=== PATIENT | male | born 2000 | race African-American/Black ===

== ENCOUNTER 2020-06-05 21:40 | Emergency (ER) | payer OTHER ==
[~2020-06-05] VITALS: Ht 177.8 cm; Wt 86.2 kg
[2020-06-05 22:23] LABS: ABSOLUTE NEUTROPHILS 4.2 thou/uL (1.4-8.2); BASOPHILS 1.1 % (0.0-2.0); EOSINOPHILS 3.3 % (0.0-3.0); HEMATOCRIT 48.7 % (42.0-52.0); LYMPHOCYTES 30.5 % (24.0-44.0); MCH 29.1 pg (26.0-34.0); MCHC 32.9 g/dL (28.0-37.0); MCV 88.2 fL (80.0-100.0); MONOCYTES 8.1 % (1.0-8.0); PLATELET COUNT 249 thou/uL (150-400); RBC 5.52 mil/uL (4.50-6.00); RDW 14.1 % (10.5-14.5); WBC 7.4 thou/uL (4.0-11.0)
[2020-06-05 22:24] LABS: URINE BILIRUBIN NEGATIVE (Negative); URINE BLOOD NEGATIVE (Negative); URINE CLARITY CLEAR; URINE COLOR YELLOW; URINE GLUCOSE-RANDOM* NEGATIVE (Negative); URINE KETONES NEGATIVE (Negative); URINE LEUKOCYTES-REFLEX NEGATIVE (Negative); URINE NITRITE-REFLEX NEGATIVE (Negative); URINE PROTEIN (DIPSTICK) 2+ (Negative); URINE SPECIFIC GRAVITY >= 1.030 (1.005-1.035); URINE UROBILINOGEN 0.2 E.U./dl (0.2-1.0)
[2020-06-05 22:32] LABS: AMP/METHAMP Negative (Negative); BARBITURATES Negative (Negative); BENZODIAZEPINES Negative (Negative); COCAINE Negative (Negative); METHADONE Negative (Negative); OPIATES Negative (Negative); PCP Negative (Negative)
[2020-06-05 22:33] LABS: ANION GAP 15 mmol/L (7-16); BUN 13 mg/dL (7-18); CALCIUM 9.6 mg/dL (8.5-10.1); CHLORIDE 106 mmol/L (98-107); CO2 21 mmol/L (21-32); CREATININE 1.3 mg/dL (0.7-1.3); GLUCOSE 111 mg/dL (74-106); POTASSIUM 3.7 mmol/L (3.5-5.1); SODIUM 142 mmol/L (136-145)
[2020-06-05 22:38] LABS: ALBUMIN 4.1 g/dL (3.4-5.0); SALICYLATE < 2.8 mg/dL (2.8-20.0); SGOT 20 U/L (15-37); SGPT 25 U/L (16-63); TOTAL BILIRUBIN 0.2 mg/dL (0.2-1.0); TOTAL PROTEIN 7.4 g/dL (6.4-8.2)
[2020-06-05 23:04] LABS: CASTS None Seen /LPF (None Seen); MUCUS 0-3 Light strn/LPF (None Seen); SQUAMOUS None Seen /LPF (0-3); URINE WBC-REFLEX 0-5 Rare /HPF (0-5)
[2020-06-05 23:05] LABS: BACTERIA-REFLEX None Seen /HPF (None Seen); CRYSTALS None Seen /LPF (None Seen); URINE RBC None Seen /HPF (0-2)
--- NOTE | 2020-06-06 08:56 | EKG ---
[address] [employer] [place] [address] ELECTROCARDIOGRAM REPORT Name: MERVAT MORSE Room #: REG JOHN Jeffries#: [id number] Admission: 06/05/20 Attend Phys: Discharge: Date of : 89 Report #: [id number] [facility] ED Test Date: 2020-06-05 Test Time: 22:13:17 Pat Name: MERVAT MORSE Department: Room: Gender: M Cadd Technician: : 2000 Requested By: Sidney Casey Order Number: [id number] MD: Tolu Olvera Measurements Intervals [place] Rate: 106 P: 54 MT: 136 QRS: 47 QRSD: 88 T: 12 QT: 321 QTc: 427 Interpretive Statements Sinus tachycardia J Point elev, probable normal early repol pattern No previous ECG available for comparison Electronically Signed On 06-06-2020 8:56:33 [employer] by Tolu Olvera [email or web address] <ELECTRONICALLY SIGNED> By: Tolu Olvera MD, [facility] 06/06/20 [id number] Tolu Olvera MD, FACC /EPI
[2020-06-07 16:54] VITALS: BP 117/66
== END 2020-06-07 16:55 ==
LOC: ER 21:40
PROVIDERS: Emergency Medicine
DX: S62.306A Unspecified fracture of fifth metacarpal bone, right hand, initial encounter for closed fracture (principal); F23 Brief psychotic disorder; Z20.828 Contact with and (suspected) exposure to other viral communicable diseases; W22.01XA Walked into wall, initial encounter; Y93.89 Activity, other specified; Y92.098 Other place in other non-institutional residence as the place of occurrence of the external cause; Y99.8 Other external cause status